=== PATIENT | male | born 1955 | race Caucasian/White ===

== ENCOUNTER 2016-10-17 02:36 | Inpatient (IN) | payer OTHER ==
[~2016-10-17] VITALS: Ht 165.1 cm; Wt 84.4 kg
[~2016-10-17 02:36] MED LIST: METHADONE PO
[2016-10-17] MEDS ORDERED: XANAX1 M1 PO (10:45)
[2016-10-17] MEDS ORDERED: DILAUDID2 M1 PO (15:19)
[2016-10-17] MEDS ORDERED: PRILOSEC OTC20 M1 PO (15:19)
[2016-10-17] MEDS ORDERED: MS CONTIN15 M2 PO (15:19)
[2016-10-17] MEDS ORDERED: MIRALAX17 G1 PO (15:19)
[2016-10-17] MEDS ORDERED: COLACE100 M1 PO (15:19)
[2016-10-17] MEDS ORDERED: ASPIRIN EC325 M2 PO (15:19)
--- NOTE | 2016-10-17 15:25 | Admission Core Measures ---
Admission Meds I reviewed the following Meds: Current Medications Sig/Jesus Start time Last Medication Dose Stop Time Status Admin Acetaminophen 975 MG ONCE 10/17 0000 NR (Tylenol) 10/17 2358 Alprazolam 1 MG TIDPRN 10/17 1445 AC (Xanax) 10/24 144 Cefazolin Sodium 2,000 MG ONCE 10/17 0000 NR (Kefzol-Ancef Inj) 10/17 2358 Methadone HCl 80 MG DAILY 10/18 1000 AC (Dolophine) Oxycodone HCl 10 MG ONCE 10/17 0000 NR (Roxicodone) 10/17 2358 Acute Coronary Syndrome Inclusion Criteria ACS Diagnosis No Inpatient Core Measures LDL Reminder: If No, please order W/I first 24hr of stay Congestive Heart Failure Inclusion Criteria CHF Diagnosis No Cerebrovascular accident Inclusion Criteria CVA/TIA Diagnosis No Inpatient Core Measures Bedside Swallow Eval Reminder: If BSE failed, place ST order Antithrombotic Reminder: Order Antithrombotic Medication by end of day 2 Antithrombotic Reminder: Document Reason Antithrombotic Not ordered by end of day 2 AFIB/Flutter Reminder: If Present, add to problem list AFIB/Flutter Reminder: Order Anticoag Medication for pts with AFIB/Flutter Atherosclerosis Reminder: If Present, add to problem list LDL Reminder: If No, please order W/I first 24hr of stay PT Order Reminder: If No, please order Venous thromboembolism Inpatient Core Measures VTE Risk Factors: Age > 40, Surgery No Mech VTE prophylaxis d/t No contraindications No VTE Pharm Prophylaxis d/t No contraindications Inclusion Criteria - Per Current guidelines, there needs to be overlap - treatment for the first 5 days of Warfarin therapy. - Parenteral Anticoagulation (IV or SC) needs to be - given along with Warfarin therapy. VTE Diagnosis No VTE Type NONE VTE Confirmed by (Test) NONE Problem List As ranked by this Provider includes Assessment & Plan 1. Unilateral primary osteoarthritis, left hip HOME MEDS Home Med List Alprazolam (Xanax) 1 MG TABLET 1 TAB PO TIDPRN ANXIETY (Reported) Aspirin (Ecotrin*) 325 MG TABLET.DR 1 TAB PO BID ANTICOAGULATION Docusate Sodium (Colace) 100 MG CAPSULE 1 CAP PO BID CONSITPATION Hydromorphone HCl (Dilaudid) 2 MG TABLET 1-2 TAB PO Q4-6 PRN PAIN [METHADONE] 80 MG LIQUID 80 MG PO DAILY HX SUBSTANCE ABUSE (Reported) Morphine Sulfate (Ms Contin) 15 MG TABLET.ER 1 TAB PO BID PAIN Omeprazole Magnesium (Prilosec Otc) 20 MG TABLET.DR 1 TAB PO DAILY GI PROTECTION Polyethylene Glycol 3350 (Miralax) 17 GRAM POWD.PACK 1 PAC PO DAILY CONSTIPATION
--- NOTE | 2016-10-17 15:25 | Patient Discharge Instructions ---
Discharge Instructions General Discharge Information You were seen/treated for: LEFT HIP PAIN SECONDARY TO UNILATERAL PRMARY OSTEOARTHRITIS You had these procedures: LEFT TOTAL HIP REPLACEMENT, ANTERIOR APPROACH Watch for these problems: Increasing pain despite the use of pain medication. Increasing redness, warmth or swelling. Drainage of any type from incision. Inability to bear weight on left leg. Fever greater than 101.5 degrees. Do not soak the wound: Yes No bath, but you may shower: Yes Other wound care: Keep wound clean and dry. No ointments of any type at any time. No exceptions. Dressing to be changed post op day 2. Daily dry dressing changes after that. Special Instructions: Aspirin 325 to be taken twice daily as protection from developing a blood clot. Take with food. Colace and miralax are to be taken for protection from constipation which is common after surgery and with the use of pain medication. Diet Continue normal diet: Yes Recommended Diet: Regular Additional DIET Information: Advance as tolerated Activity Full Activity/No Limits: No Activity Self Limited: Yes Pounds, do NOT lift more than: 10 Additional ACTIVITY Info: WBAT Acute Coronary Syndrome Inclusion Criteria At DC or during hospital stay patient has or had the following: ACS DIAGNOSIS No Discharge Core Measures Meds if any: Prescribed or Continued at Discharge Meds if any: NOT Prescribed or Continued at Discharge Congestive Heart Failure Inclusion Criteria At DC or during hospital stay patient has or had the following: CHF DIAGNOSIS No Discharge Core Measures Meds if any: Prescribed or Continued at Discharge Meds if any: NOT Prescribed or Continued at Discharge Cerebrovascular accident Inclusion Criteria At DC or during hospital stay patient has or had the following: CVA/TIA Diagnosis No Discharge Core Measures Meds if any: Prescribed or Continued at Discharge Meds if any: NOT Prescribed or Continued at Discharge Venous thromboembolism Inclusion Criteria VTE Diagnosis No VTE Type NONE VTE Confirmed by (Test) NONE Discharge Core Measures - Per Current guidelines, there needs to be overlap - treatment for the first 5 days of Warfarin therapy. - If discharged on Warfarin prior to 5 days of - overlap therapy, the patient will need to be - assessed for post discharge needs including - *Post discharge parental anticoagulation - *Warfarin and/or parental anticoagulation education - *Follow up date to check INR post discharge At least 5 days overlap therapy as Inpatient No Meds if any: Prescribed or Continued at Discharge Note: Overlap Therapy is Warfarin and Anticoagulant Meds if any: NOT Prescribed or Continued at Discharge
--- NOTE | 2016-10-17 15:27 | RADIOLOGY REPORT ---
EXAMINATION: XR HIP, LEFT CLINICAL INFORMATION: Left total hip replacement. COMPARISON: None TECHNIQUE: AP and crosstable lateral views of the left hip. FINDINGS: Prosthetic components of the left total hip arthroplasty are appropriately aligned. No periprosthetic fracture. Gas from recent surgery is present in the surrounding soft tissues. IMPRESSION: Normal postoperative appearance of the left total hip prosthesis.
--- NOTE | 2016-10-17 15:31 | Surgical Discharge Summary ---
Visit Information Visit Dates Admission Date: 10/17/16 Discharge Date: 10/18/16 History of Present Illness Chief Complaint: Left hip pain secondary to unilateral primary osteoarthritis Medical History Isolation History: Standard Surgical History Pertinent Surgical History: non-contributory Review of Systems: See H&P Hospital Course Course Attending Physician: MEENAKSHI HARRIS MD Primary Care Physician: TRACY WYNN DO [facility] Course: Mykel was admitted to the hospital on 10/17/2016 for an elective left total hip replacement. He tolerated the procedure well and was transferred to a general surgical floor. THere his vital signs were stable and within normal limits, and his neurovascular status remained intact. His diet was advanced and tolerated and he was able to spontaneously void. His pain was controlled with oral pain medication. He was evaluated and treated by physical therapy and he was deemed appropriate for discharge. Allergies: Coded Allergies: No Known Allergies (10/15/16) Disposition Summary Disposition Principal Diagnosis: Left hip unilateral primary osteoarthritis Additional Diagnosis: None Discharge Disposition: home health services Discharge Instructions General Discharge Information Code Status: Full Code Patient's Diet: Regular, advance as tolerated Patient's Activity: WBAT on left leg Follow-Up Instructions/Appts: Follow up with Dr. Harris in 6 weeks from date of surgery. Call his office to arrange/confirm follow up appointment. Medications at Discharge Discharge Medications: Continue taking these medications: [METHADONE] 80 MG LIQUID 80 Milligram ORAL DAILY Comments: Last Taken: 10/18/16 Time: 0600 Alprazolam (Xanax) 1 MG TABLET 1 Tablet ORAL THREE TIMES A DAY NEEDED Comments: Last Taken: 10/17/16 Time: 1999 Start taking the following new medications: Aspirin (Ecotrin*) 325 MG TABLET.DR 1 Tablet ORAL TWICE DAILY Qty = 60 No Refills Comments: Last Taken: 10/18/16 Time: 1000 Docusate Sodium (Colace) 100 MG CAPSULE 1 Capsule ORAL TWICE DAILY Qty = 14 No Refills Instructions: DISCONTINUE USE IF YOU DEVELOP LOOSE STOOL OR DIARRHEA Comments: Last Taken: 10/18/16 Time: 1000 Hydromorphone HCl (Dilaudid) 2 MG TABLET 1-2 Tablet ORAL EVERY 4-6 HOURS as needed for PAIN Qty = 36 No Refills Comments: Last Taken: 10/18/16 Time: 1100 Polyethylene Glycol 3350 (Miralax) 17 GRAM POWD.PACK 1 Packet ORAL DAILY Qty = 7 No Refills Instructions: dissolve in water, DISCONTINUE USE IF YOU DEVELOP LOOSE STOOL OR DIARRHEA Comments: Last Taken: 10/18/16 Time: 1000 Morphine Sulfate (Ms Contin) 15 MG TABLET.ER 1 Tablet ORAL TWICE DAILY Qty = 6 No Refills Comments: NOT TAKEN IN HOSPITAL Omeprazole Magnesium (Prilosec Otc) 20 MG TABLET.DR 1 Tablet ORAL DAILY Qty = 30 No Refills Comments: Last Taken: 10/18/16 Time: 0600
[2016-10-17 18:11] VITALS: BP 140/80
--- NOTE | 2016-10-17 18:35 | Operative Report ---
Operative/Inv Procedure Report Surgery Date: 10/17/16 Name of Procedure: Left total hip replacement Pre-Operative Diagnosis: Left hip avascular necrosis Post-Operative Diagnosis: Same Estimated Blood Loss: 300 Surgeon/Redrawer: KIMBERLY BEARD,MEENAKSHI Arenas Anesthesia: block Operative/Procedure Note Note: Description of Procedure: The patient was taken to the operating room and positively identified. After induction of spinal anesthesia and administration of appropriate pre-operative antibiotics, the patient was positioned supine on the operating room table and all bony prominences were well padded. After performing a surgical timeout, the left lower extremity was prepped and draped in the usual sterile fashion. A direct anterior approach was made to the left hip. The incision was carried sharply through superficial soft tissues to the level of the fascia. Meticulous hemostasis was maintained with Bovie electocautery. The fascia over the tensor fascia nasir muscle was opened sharply and the interval between the TFL and the sartorius was entered bluntly taking care to stay lateral to the lateral femoral cutaneous nerve. Retractors were placed around the femoral neck and the pericapsular fat was identified. The ascending branches of the lateral femoral circumflex vessels were identified and carefully coagulated. The pericapsular fat and anterior capsule were then resected. A napkin ring osteotomy was performed and the femoral head was removed without difficulty. Attention was then turned to the acetabulum. After appropriate placement of retractors, the acetabulum was exposed. Soft tissue was cleaned from the acetabular margin and notch. Overhanging osteophytes were removed and the teardrop was exposed. The acetabulum was then sequentially reamed to accept a 56 mm Simon Tritanium hemispherical cluster hole shell. There were several subchondral cysts in the dome bone. Cancellus allograft bone was packed into the cysts and reverse reamed into place. The cup was impacted into place in the appropriate position and 2 screws were used for supplemental fixation. It was then fitted with a 36 mm Trident X3 zero degree polyethylene insert. Attention was then turned to the femur. After performing the appropriate ligament releases, the proximal femur was exposed. It was then sequentially broached to accept a size 5 [place] Accolade 2 stem. This was trialed for leg length and stability. The trial component was removed and the final component was impacted into place. The trunnion was carefully cleaned and fit with a 36 mm, -2.5 Biolox delta ceramic femoral head. The hip was reduced and put through a full range of motion and found to be stable. The articular space was then irrigated with sterile saline. The periarticular soft tissues were infilitrated with Marcaine. The fascial layer was closed with interrupted #1 vicryl suture and the skin was re-approximated with interrupted 2 -0 vicryl. The skin was closed with a running 3-0 V-Lock suture. Steri-strips and a sterile dressing were applied. The patient was awakened and taken to the recovery room in satisfactory condition.
[2016-10-17 20:41] VITALS: BP 142/74
[2016-10-17 22:24] VITALS: BP 102/72
[2016-10-18 00:19] VITALS: BP 128/90
--- NOTE | 2016-10-18 01:01 | NUR ---
LATE ENTRY: PATIENT ARRIVED TO FLOOR AT 1700. ICE ON SURGICAL SITE. GAUZE WITH TEGEDERM ON L HIP, SURGICAL SITE WNL, NO DRAINAGE/REDNESS. PATIENT DENIES ANY PAIN AT ADMISSION, VSS. AT BEDSIDE. PT DID NOT COME TO AMBULATE PATIENT. PATIENT USING URINAL TO VOID. ALPS ON. BED ALARM ON. CALL [facility] WITHIN REACH.
[2016-10-18 04:07] VITALS: BP 130/86
[2016-10-18 07:20] VITALS: BP 120/70
--- NOTE | 2016-10-18 07:41 | PN- Orthopedic ---
Subjective Subjective: Pt. has no complaints. Taking Diludid Po for pain control this morning, states he gets fairly good pain control Taking solid food well Objective Vital Signs and I&Os Vital Signs Date Time Temp Pulse Resp B/P B/P Pulse O2 O2 Flow FiO2 Mean Ox Delivery Rate 10/18 0720 97.6 77 20 120/70 97 Room Air 10/18 0407 97.6 75 20 130/86 95 Room Air 10/18 0019 98.1 80 20 128/90 94 Room Air 10/17 2224 97.5 96 20 102/72 93 Room Air 10/17 2041 97.6 96 20 142/74 93 Room Air 10/17 1811 96.6 55 16 140/80 98 Room Air Intake & Output 10/18 0800 10/18 0000 10/17 1600 10/17 0800 10/17 0000 10/16 1600 Intake Total 850 800 Output Total 300 950 Balance 550 -150 Intake, IV 600 600 Intake, Oral 250 200 Output, Urine 300 950 Patient 186 lb Weight Alert, oriented, looks comfortable COR reg Lungs clear bilat. Abdomen benign L hip dresing C/D/I, minimal swelling,neurovasc.check intact.Foot warm, adequate periph. perfusion Sensory and motor fxn as expected. Assessment/Plan Assessment/Plan s/p LTHA for DJD Pt. stable, progressing as expected Tolerating diet. Voiding well spontaneously. Will d/c IVF No signs of infection Pain controlled with oral Dilaudid. Maintained on home dose methadone as well. CBC and elctrolytes pending for today, will follow results. Awaiting PT evaluation for dispo Pt. wishes to go home today Core Measures/Miscellaneous Venous Thromboembolism VTE Risk Factors: Age > 40, Surgery VTE Contraindications: No Contraindications VTE Diagnosis: No VTE Type: NONE VTE Confirmed by (Test): NONE Beta Cornelia Is Beta Cornelia a Home Med? No Antibiotics Is Patient on Antibiotics? No
[2016-10-18 08:49] LABS: ABSOLUTE BASOPHIL COUNT 0 /CUMM (0.0-0.2); ABSOLUTE EOSINOPHIL COUNT 0 /CUMM (0.0-0.7); ABSOLUTE GRANULOCYTE CT 8.2 /CUMM (1.4-6.5); ABSOLUTE MONOCYTE COUNT 0.8 /CUMM (0.10-0.60); BASOPHIL % 0.2 % (0.0-2.0); EOSINOPHIL % 0 % (0-5); GRANULOCYTE % 74.4 % (42.2-75.2); HEMATOCRIT 34.8 % (42-52); MEAN CORPUSCULAR HGB 34.6 PG (27.0-31.0); MEAN CORPUSCULAR HGB CONC 33.7 G/DL (33.0-37.0); MEAN CORPUSCULAR VOLUME 102.9 FL (80.0-94.0); PLATELET COUNT 210 /CUMM (130-400); RBC DISTRIBUTION WIDTH 13.8 % (11.5-14.5); RED BLOOD CELL CT 3.39 /CUMM (4.70-6.10)
== END 2016-10-18 11:53 | disposition home health service (06) | DRG 470 ==
LOC: 2NA 02:36 → SDA 02:36 → ENRESERV 16:14 → 2NA 17:42
PROVIDERS: Nurse Practitioner; ADMIT Orthopaedic Surgery
PROC: 0SRB04A Replacement of Left Hip Joint with Ceramic on Polyethylene Synthetic Substitute, Uncemented, Open Approach (ICD-10-PCS; principal; 2016-10-17)
DX: M87.9 Osteonecrosis, unspecified (principal); I10 Essential (primary) hypertension
CPT/HCPCS: 2NASP; 73502-LT; 82436; 88304; 97110-GO; 97116-GO; 97161-GP; 97530-GO; J0131; J0690; J0735; J2405; J2550; J7042